=== PATIENT | male | born 1965 | race Caucasian/White ===

== ENCOUNTER 2021-11-29 07:05 | Emergency (ER) | payer BC ==
[2021-11-29 07:09] VITALS: BP 143/75; RESP 16; TEMP 98
[2021-11-29] MEDS ORDERED: DIPH,PERTUS(ACELL)TETVAC-LF 0.5 ML VIAL IM ONE (07:22)
[2021-11-29] MEDS ORDERED: LIDOCAINE 1% INJ 10MG/ML (5 ML VIAL-PF) SQ ONE (07:22)
--- NOTE | 2021-11-29 07:26 | ED ---
General Adult HPI - General Chief complaint: Wound/Laceration Stated complaint: Right arm laceration Time Seen by Provider: 11/29/21 07:08 Source: patient, RN notes reviewed, old records reviewed Mode of arrival: ambulatory Limitations: no limitations - History of Present Illness Initial comments: 56-year-old male presenting for evaluation of laceration to the right forearm. Patient was admitted his crotch, piece of sheet metal had fallen lacerating the dorsal surface of his right forearm. No other injury reported. No significant bleeding currently, tetanus is not up-to-date. - Related Data Previous Rx's Medication Instructions Recorded Cephalexin [Keflex] 500 mg PO QID #20 cap 11/29/21 Allergies Allergy/AdvReac Type Severity Reaction Status Date / Time No Known Allergies Allergy Verified 11/29/21 07:05 Review of Systems ROS Statement: Those systems with pertinent positive or pertinent negative responses have been documented in the HPI. ROS Other: All systems not noted in ROS Statement are negative. Past Medical History Past Medical History: Hypertension History of Any Multi-Drug Resistant Organisms: None Reported Additional Past Surgical History / Comment(s): eye removed Past Psychological History: No Psychological Hx Reported Smoking Status: Former smoker Past Alcohol Use History: Occasional Past Drug Use History: Marijuana General Exam Limitations: no limitations General appearance: alert, in no apparent distress Head exam: Present: atraumatic, normocephalic Eye exam: Present: normal appearance, PERRL ENT exam: Present: normal exam Neck exam: Present: normal inspection. Absent: tenderness, meningismus Respiratory exam: Present: normal lung sounds bilaterally, respiratory distress Cardiovascular Exam: Present: regular rate, normal rhythm GI/Abdominal exam: Present: soft. Absent: distended, tenderness, guarding Extremities exam: Present: other (Laceration on the dorsal surface of the right forearm linear, does not penetrate the fascial layer, no underlying tendon injury, 11 cm in length.) Neurological exam: Present: alert, oriented X3, CN II-XII intact. Absent: motor sensory deficit Psychiatric exam: Present: normal affect, normal mood Skin exam: Present: warm, dry. Absent: cyanosis, diaphoretic Course Vital Signs 11/29/21 07:06 Temperature 98 F Pulse Rate 69 Respiratory 16 Rate Blood Pressure 143/75 O2 Sat by Pulse 98 Oximetry Procedures - Laceration Laceration #1 Consent Obtained: verbal consent Indication: laceration Site: upper extremity Description: linear, flap Depth: simple, single layer Anesthetic Used: lidocaine 1% Anesthesia Technique: local infiltration Amount (mls): 6 Pre-repair: wound explored, irrigated extensively, deep structures intact Size of Sutures: 5-0 Number of Sutures: 8 Technique: simple, interrupted Patient Tolerated Procedure: well Medical Decision Making - Medical Decision Making 56-year-old male with laceration of the right forearm approximately 11 cm in length, one small V-shaped flap which does appear to have compromised blood supply. The laceration is repaired with 5-0 nylon suture total count 8. Tetanus is updated. This was fairly dirty sheet-metal according to the patient. He will be covered with prophylactic antibiotics. He should return for suture removal in 10 days. Disposition Clinical Impression: Laceration Disposition: HOME SELF-CARE Condition: Good Instructions (If sedation given, give patient instructions): Care For Your Stitches (ED), Laceration (ED) Additional Instructions: Please return for suture removal in 10 days. Prescriptions: Cephalexin [Keflex] 500 mg PO QID #20 cap Is patient prescribed a controlled substance at d/c from ED?: No Referrals: Nichole Kyle MD [Primary Care Provider] - 1-2 days Time of Disposition: 07:59
[2021-11-29 08:14] VITALS: PULSE 68
== END 2021-11-29 08:14 | disposition home or self-care (01) ==
LOC: EC 07:05
DX: S51.811A Laceration without foreign body of right forearm, initial encounter (principal); I10 Essential (primary) hypertension; Z87.891 Personal history of nicotine dependence; W26.8XXA Contact with other sharp object(s), not elsewhere classified, initial encounter
CPT/HCPCS: 90715; 99282; 90471; 12004; J2001